=== PATIENT | female | born 1985 | race Hispanic/Latino ===

== ENCOUNTER 2017-12-28 08:39 | Observation (INO) | payer OTHER ==
[2017-12-23 13:33] VITALS: BMI 21.9
[2017-12-28 09:39] LABS: BASO # 0.1 K/uL (0.0-0.2); BASO % 0.7 % (0.0-2.0); EOS # 0.1 K/uL (0.0-0.7); EOS % 1.6 % (0.0-4.0); HEMOGLOBIN 12.4 g/dL (12.0-16.0); LYMPH # 1.9 K/uL (1.0-4.3); LYMPH % 22.8 % (20.0-40.0); MEAN CELL VOLUME 89.6 fl (81.0-99.0); MEAN CORPUSCULAR HEMOGLOBIN 30.7 pg (27.0-31.0); MEAN CORPUSCULAR HGB CONC 34.3 g/dL (33.0-37.0); MEAN PLATELET VOLUME 8.6 fl (7.2-11.7); MONO # 0.5 K/uL (0.0-0.8); MONO % 6.6 % (0.0-10.0); NEUT # 5.6 K/uL (1.8-7.0); NEUT % 68.3 % (50.0-75.0); NRBC % 0.1 % (0.0-0.0); RBC 4.04 Mil/uL (3.80-5.20); RED CELL DISTRIBUTION WIDTH 13.4 % (11.5-14.5); WHITE BLOOD COUNT 8.3 K/uL (4.8-10.8)
[2017-12-28] MEDS ORDERED: ePHEDrine 50 mg/ml Inj ONE ×2 (11:06→12:02)
[2017-12-28] MEDS ORDERED: Midazolam 2 MG/2 ML VIAL ONE (11:06)
[2017-12-28] MEDS ORDERED: Rocuronium 10 mg/ml (5 ml) ONE (11:06)
[2017-12-28] MEDS ORDERED: Propofol 10 mg/ml Inj (20 ML) ONE (11:06)
[2017-12-28] MEDS ORDERED: Succinylcholine 200 mg/10 ml Inj IV ONE (11:07)
[2017-12-28] MEDS ORDERED: Lidocaine 4% (Laryng-O-Jet) Kit MM ONE (11:07)
[2017-12-28] MEDS ORDERED: Bupivacaine 0.5% Inj(30mL) IJ ONE (12:17)
[2017-12-28] MEDS ORDERED: Lactated Ringer's 1,000 ML IV ONE ×4 (12:17→14:40)
[2017-12-28] MEDS ORDERED: Dexamethasone 4 mg/1 ml ONE (12:32)
[2017-12-28] MEDS ORDERED: Silver Nitrate Topical - Stick TOP ONE (12:47)
[2017-12-28] MEDS ORDERED: Neostigmine 1:1000 (1 mg/ml) Inj ONE (14:39)
[2017-12-28] MEDS ORDERED: Lactated Ringer's 1,000 ML IV SCH (15:15)
[2017-12-28] MEDS: HYDROmorphone 0.5 mg/0.5 ml ISec IVP PRN ×2 (15:20→15:35)
--- NOTE | 2017-12-28 16:19 | PCM.SURG1 ---
Surgeon's Initial Post Op Note - Surgeon's Notes Surgeon: Lawrence Foreign Language Teacher: Burgess Miranda MD PGY4 Type of Anesthesia: General Endo, Local Pre-Operative Diagnosis: Endometriosis Operative Findings: see op note Post-Operative Diagnosis: Severe endometriosis Operation Performed: Robotic assisted endometrectomy; removal of endometrioma, appendectomy Specimen/Specimens Removed: see op note, multiple specimens Estimated Blood Loss: EBL {In ML}: 15 Blood Products Given: N/A Drains Used: No Drains Post-Op Condition: Good Date of Surgery/Procedure: 12/28/17 Time of Surgery/Procedure: 12:00
[2017-12-28] MEDS ORDERED: Lactated Ringer's 500 ML IV ONE (16:37)
[2017-12-28] MEDS: oxyCODONE 5 mg Immediate Release Tab PO PRN (19:11)
[2017-12-29] MEDS: oxyCODONE 5 mg Immediate Release Tab PO PRN (03:07)
[2017-12-29 08:33] VITALS: TEMP 98.2; O2SAT 99
[2017-12-29] MEDS ORDERED: Bisacodyl 5mg EC Tab PO ONE (10:47)
--- NOTE | 2017-12-29 10:52 | CP.PCM.PN ---
Subjective - Date & Time of Evaluation Date of Evaluation: 12/29/17 Time of Evaluation: 10:20 - Subjective Subjective: Hot Knife Cutter Surgery Pt seen and examined. Had one episode of emesis last night but now tolerating minimal liquids. Reports feeling weak from not eating but does not have much appetite. Voiding, Ambulating, no flatus/BM. No other complaints Objective - Vital Signs/Intake and Output Vital Signs (last 24 hours): Temp Pulse Resp BP Pulse Ox 98.2 F 79 16 102/64 99 12/29/17 08:32 12/29/17 08:32 12/29/17 08:32 12/29/17 08:32 12/29/17 08:32 Intake and Output: 12/29/17 12/29/17 06:59 18:59 Intake Total 1999 Balance 1999 - Medications Medications: Current Medications Acetaminophen (Tylenol 325mg Tab) 650 mg PO Q6 [facility] Last Admin: 12/28/17 22:09 Dose: 650 mg Bisacodyl (Dulcolax) 5 mg PO ONCE ONE Stop: 12/29/17 10:48 Docusate Sodium (Colace) 100 mg PO BID [facility] Lactated Ringer's (Lactated Ringer's) 1,000 mls @ 125 mls/hr IV .Q8H [facility] Last Admin: 12/28/17 21:03 Dose: 125 mls/hr Ibuprofen (Motrin Tab) 600 mg PO Q8 PRN PRN Reason: Pain, Mild (1-3) Last Admin: 12/29/17 02:07 Dose: 600 mg Ondansetron HCl (Zofran Inj) 4 mg IVP Q6 PRN PRN Reason: Nausea/Vomiting Last Admin: 12/28/17 22:04 Dose: 4 mg Oxycodone HCl (Oxycodone Immediate Release Tab) 5 mg PO Q6 PRN PRN Reason: Pain, moderate (4-7) Last Admin: 12/29/17 03:07 Dose: 5 mg - Labs Labs: 12/28/17 09:31 - Constitutional Appears: Non-toxic, No Acute Distress - Head Exam Head Exam: ATRAUMATIC, NORMOCEPHALIC - Eye Exam Eye Exam: EOMI. absent: Scleral icterus - Respiratory Exam Respiratory Exam: NORMAL BREATHING PATTERN. absent: Respiratory Distress - Cardiovascular Exam Cardiovascular Exam: RRR, +S1, +S2 - GI/Abdominal Exam GI & Abdominal Exam: Soft, Tenderness (minimal at incisions). absent: Distended , Firm, Guarding, Rigid, Rebound Additional comments: dressings c/d/i - Extremities Exam Extremities Exam: absent: Calf Tenderness, Pedal Edema - Neurological Exam Neurological Exam: Alert, Awake, Oriented x3 - Skin Skin Exam: Dry, Warm Assessment and Plan - Assessment and Plan (Free Text) Assessment: 32F s/p Robotic assisted endometrectomy; removal of endometrioma, appendectomy POD#1 Plan: Villanueva out this AM Advanced to Regular diet Stool softener Possible DC later today if doing well. D/W Dr. Lawrence Mead PGY4
[2017-12-29 14:57] VITALS: BP 105/64; PULSE 78; RESP 18
[2017-12-29] MEDS ORDERED: DEXTROAMPHETAMINE SULFATE PO SCH (17:00)
--- NOTE | 2017-12-30 17:05 | PCM.OP ---
Operative Report - Operative Report Date of Surgery/Procedure: 12/28/17 Time of Surgery/Procedure: 12:00 Surgeon: Dr. Manny Miranda Imaging Technician: Dr. Tj Bravo Anesthesia/Sedation: general/Dr. Aguiar Pre-Operative Diagnosis: abdominal barr and endometriosis Post-Operative Diagnosis: multiple areas of sigmid colon invlvement and appendix Indication for Surgery: as above Operative Findings: as above Procedure/Operation Description: 1-Excision perirectal and sigmoid endometriosis (perirectal x1, sigmoid x2). 2-Appendectomy. Brief History: This 32 year old woman with severe abdominal pain from endometriosis was already brought to the operating room by Dr. Barrios when he requested an intraoperatie general surfgery consultation. Description of the Procedure: The robotic procedure was already initiated by Dr. Bravo (separate dictation). After payam control of the robotic console the miguel lesion in the sigm oid colon was incised circumferentially and with blunt and sharp dissection with the aid of electrocautery the lesion was excided en-bloc, mared and sent to pathology separately. The second sigmoid lesion was excised in a similar fashion. Both defects were closed with interrupted 3-0 vicryl. The rectal lesion was excised in a similar fashion and sent separately to pathology. The appendix was retracted anteriorly and the mesentery was dessicated with monopolar to the base. With three separate 3-0 vicryl endoloops the appendix ws ligated, transected, mared and sent to pathology separately. The operation was then turned ocer to Dr. Escobedo ()separate dictation Dr. Bravo). Estimated Blood Loss: 10 cc Complications: none Specimen: sigmoid colon (times two) and rectum Discharge & Condition: stable
--- NOTE | 2018-01-03 13:31 | OP ---
PROCEDURE DATE: 12/28/2017 SURGEON: Tj Bravo MD DICTATING MACHINE MECHANIC: 1. Manny Miranda MD 2. Jc Mead DO ANESTHESIOLOGIST: Dorota Aguiar MD ANESTHETIC: General Endo PREOPERATIVE DIAGNOSES: 1. Incapacitating pelvic pain. 2. Incapacitating abdominal pain. 3. Abnormal uterine bleeding. 4. History of pelvic endometriosis. 5. History of previous failed medical surgical therapy. 6. History of severe endometriosis and pelvic adhesions. 7. Gastrointestinal and genitourinary symptoms. 8. Rule out interstitial cystitis. 9. Adenomyosis. POSTOPERATIVE DIAGNOSES: 1. Incapacitating pelvic pain. 2. Incapacitating abdominal pain. 3. Abnormal uterine bleeding. 4. History of pelvic endometriosis. 5. History of previous failed medical surgical therapy. 6. History of severe endometriosis and pelvic adhesions. 7. Gastrointestinal and genitourinary symptoms. 8. Rule out interstitial cystitis. 9. Adenomyosis. 10. Severe pelvic endometriosis. 11. Ovarian adhesions. 12. Bowel adhesions. 13. Subseptate uterus. 14. Mild bilateral hydroureters. OPERATION PERFORMED: 1. Examination under anesthesia. 2. Video_assisted hysteroscopy. 3. Hysteroscopic septoplasty. 4. Robotic da Natalie laparoscopy. 5. Enterolysis. 6. Bilateral ureterolysis. 7. Bilateral salpingo_ovariolytis. 8. Multiple peritoneal biopsies and excision of endometriosis. 9. Treatment of endometriosis. 10. Shaving of endometriosis of the bowel. 11. Cystoscopy. 12. Bilateral ureteral catheterization and injection of IC-Green dye. Dr. Miranda from General Surgery was consulted to perform 1-Excision perirectal and sigmoid endometriosis (perirectal x1, sigmoid x2). 2-Appendectomy procedure and he will dictate that separately. COMPLICATIONS: None. SAMPLES: DRAINS: ESTIMATED BLOOD LOSS: Minimal. HISTORY: MD PROVIDES HISTORY FINDINGS: Genitalia: normal, external genitalia, cervix normal without lesions or polyps. Hysteroscopy showed evidence of a small septum of the fundus of the uterus and no other lesions visualized. Cystoscopy was performed to rule out endometriosis of bladder mucosa and also interstitial cystitis, also injury. The bladder was normal with no evidence of stone, trigonitis or cystitis. Positive jet flow visualized in both ureters. Laparoscopy was normal, gallbladder was normal, liver edges appeared to be normal. Ascending colon and transverse were normal. The appendix appeared to be abnormal with both fibrosis and thickening. There was evidence of severe adhesions, fibrosis and endometriosis of the rectovaginal septum and attachment of the bowel to the posterior aspect of the uterus and to both the right and left adnexa. Both ovaries were severely attached to the posterior aspect of the ureters with endometriosis and adhesions. Fallopian tubes appeared to have some inflammatory changes of adhesions, but overall appeared to be normal. Both ovaries appeared to be involved with scar. 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 There was also evidence of mild bilateral hydroureters. CONSENT: The patient had been thoroughly evaluated and counseled regarding pros and cons of the procedure, the reasonable alternative, and the possible complications. She understood and accepted the risks involved. Appropriate literature was provided to the patient. The patient was in understanding that given her history and presurgical exam, she knows that she was a high risk and average patient. She accepted all the risks involved and all the questions had been answered to her satisfaction. DESCRIPTION OF PROCEDURE: Initiation of the case: After adequate anesthesia was obtained, the patient was placed in the dorsal lithotomy position with extreme care of placement of the patient without hyperextension or hyperflexing the hips. At this point, the patient was prepped and draped, the surgeon was gowned and gloved. A time- out was taken according to the hospital procedure and the procedure was started. At this point, we performed the cystoscopy and bilateral ureteral catheterization. At this point we performed cystoscopy: A cystoscope was inserted into the bladder, under direct visualization and the bladder was visualized. The bladder was free of lesions, tumors. There was no evidence of interstitial cystitis, and there was only a mild amount of trigonitis. At this point, both ureters were identified and appeared to be in normal anatomical position. At this point, utilizing an open-ended 5-Armenian catheter, the left ureter was catheterized all the way to the distal ureter, and a 5 mL of IC-Green were injected into the distal ureter. Similarly, on the contralateral ureter, the ureter was catheterized all the way to the distal ureter, and a 5 mL of IC-Green were injected into the distal ureter. At this point, the stents were removed, and the hysteroscope was removed and a 16- Armenian Villanueva was placed into the bladder. At this point, we proceeded with a hysteroscopy: A speculum was placed in the vagina, and the anterior lip of the cervix was grasped. The cervix was dilated and a hysteroscope was inserted into the cavity. The cavity appeared to be of normal size, but there was evidence of a subseptum at the top of the uterus. At this point, we proceeded with excision of uterine septum. Once the septum was identified, the endoscopic scissors were inserted into the uterine cavity and a progressive dissection of the septum was performed with great care not to perforate the uterus and not to cause any bleeding. The procedure was basically bloodless and the septum was excised. At this point, we proceeded with placement of trocars and docking of the Da Natalie Xi robot The surgeons were re-gowned and re-gloved, and an open laparoscopy was performed by making an incision below the umbilicus, and the fascia was incised , and the peritoneum was entered in the blunt fashion. The cannula was inserted and the abdomen was insufflated, and under direct visualization 3 additional ports were inserted, left upper quadrant, left mid quadrant and right upper quadrant. At this point, the da Natalie Xi robot was brought into the field and docked, and the instruments were inserted under direct visualization. With extreme care not to injure the bowel or any other area. As per the dictation, the upper abdomen appeared to be normal with no evidence of any lesions. The pelvis had the findings described above, which included significant adhesions, fibrosis of the posterior cul-de-sac, significant endometriosis with deep endometriosis nodules. Both ovary adherent to both the ovarian fossas and the posterior aspect of the uterus with significant inflammatory changes. At this point, we proceeded with the left ureterolysis. The ureter appeared to dilated and it was clearly identified utilizing fluorescent technology. An incision was made on the peritoneum at the top of the pelvic brim, and incision was then carried down all the way opening the peritoneum and all the way down from the pelvic brim all the way down to the ovarian fossa extending the incision below the ovary. It was a progressive dissection where the ureter was progressively lateralized and the peritoneum medialized, thus freeing the ureter all the way down to the crossing of the uterine vessels. After this was done and the ureter was freed and lateralized and a large area of peritoneum, which had been opened up was excised and sent to pathology. At this point, after ureter had been identified, we were able to elevate the ovary and dissect it from the pelvic side wall in the ovarian fossa At this point, we proceeded with the left ovariolysis. The ovary was gently dissected and elevated off the ovarian fossa and area of fibrosis of endometriosis were exposed. At this point, we proceeded with the right ureterolysis. The ureter was identified and again utilizing florescent technology, the retroperitoneal space was entered and a full dissection was performed entering the retroperitoneal space and dissecting the ureter, removing the ureter laterally and the peritoneum medially. A full dissection was performed all the way down to the ovarian fossa, on the crossing of the uterine arteries. A large area of peritoneum containing endometriosis was also dissected and sent to Pathology. At this point, we proceeded with a right ovariolysis. The ovary was progressively elevated, areas of deep endometriosis and superficial endometriosis were dissected out and the ovary was finally elevated. At this point, we proceeded with a treatment of endometriosis and excision of endometriosis. On the left hand side, a large area of peritoneum, where containing endometriosis was excised in the ovarian fossa with the upper margin of the excision at the utero_ovarian ligament all the way down to the uterosacral ligament. Large areas of fibrosis were identified in posterior cul-de-sac and the rectovaginal space was affected with endometriosis and severe fibrosis. The rectovaginal area was then dissected and the space was opened, and we were able to dissect the rectum away from the posterior aspect of the cervix. Additional areas of endometriosis were dissected from the posterior aspect of the Uterus. At this point, we proceeded with excision of the endometriosis on the right hand side where similarly in a full excision of endometriosis was performed by performing incision from starting at the right utero_ovarian ligament all the way down to the right uterosacral ligament. At this point, Dr. Miranda from General Surgery was called in and he performed procedure, which she will dictate separately. At this point, it was checked for hemostasis and appeared to be excellent. All the endometriosis had been excised. At this point, we performed the ablation of inflamed peritoneum, utilizing the J_plasma device. There were inflammatory areas in the posterior aspect of the uterus, which were not endometriotic, but they were purely inflammatory and these were not excisable, as they were not endometriotic. Therefore, we proceeded with ablation of such area utilizing the J plasma. Once this was done, it was checked for hemostasis and appeared to be excellent. The consult was handed to Dr. Miranda, who performed the and he will dictate that separately. After this was done, it was checked for hemostasis and appeared to be excellent. The pelvis was irrigated. The da Natalie Xi robot was removed. The abdomen desufflated. The instruments were removed. The incisions were closed in layers with 0 PDS for the fascia and 4-0 Monocryl for the skin. The patient was awakened up and taken to recovery room in excellent condition. Tj Bravo MD [facility]OSPITALLuis Daniel
== END 2017-12-29 14:40 | disposition home or self-care (01) ==
LOC: H.OPSURG 08:39 → H.PEDS 16:05
PROVIDERS: ADMIT Obstetrics & Gynecology Reproductive Endocrinology; ATTEND Obstetrics & Gynecology Reproductive Endocrinology
DX: N80.1 Endometriosis of ovary (principal); N70.11 Chronic salpingitis; N80.5 Endometriosis of intestine; N80.8 Other endometriosis; N93.9 Abnormal uterine and vaginal bleeding, unspecified; N80.3 Endometriosis of pelvic peritoneum; N73.6 Female pelvic peritoneal adhesions (postinfective); N80.0 Endometriosis of uterus; Q51.2 Other doubling of uterus; N13.4 Hydroureter; N80.4 Endometriosis of rectovaginal septum and vagina; N13.5 Crossing vessel and stricture of ureter without hydronephrosis
CPT/HCPCS: 36415; 44111; 44955; 45171; 49203; 53899; 58560; 58999; 85025; 86850; 86900; 88304; 88305; C1729; G0378; J0330; J0690; J1100; J1170; J2001; J2250; J2405; J2704; J2710; J3010; J7030; J7120